=== PATIENT | male | born 1985 | race Caucasian/White ===

== ENCOUNTER 2017-08-03 22:26 | Emergency (ER) | payer OTHER ==
[2017-08-03 23:12] VITALS: BP 160/102; PULSE 69; TEMP 98.1; BMI 30.4
--- NOTE | 2017-08-04 15:47 | EKG ---
Test Reason : Blood Pressure : / mmHG Vent. Rate : 068 BPM Atrial Rate : 068 BPM P-R Int : 156 ms QRS Dur : 088 ms QT Int : 360 ms P-R-T Axes : 059 037 018 degrees QTc Int : 382 ms NORMAL SINUS RHYTHM NORMAL ECG NO PREVIOUS ECGS AVAILABLE Confirmed by GREG IYER, GOPI ([id number] on 08/04/2017 3:47:01 PM Referred By: Confirmed By:GOPI GARZA MD
== END 2017-08-04 01:58 | disposition left against medical advice (07) ==
LOC: JER 22:26
DX: Z53.21 Procedure and treatment not carried out due to patient leaving prior to being seen by health care provider (principal)
CPT/HCPCS: 93005; 93010; 99281-25